=== PATIENT | male | born 1940 | race African-American/Black ===

== ENCOUNTER 2025-03-25 15:31 | Inpatient (IN) | payer BC, MEDICARE ==
[~2025-03-25] VITALS: Ht 180.3 cm; Wt 62.6 kg
[~2025-03-25 15:31] MED LIST: ASPI-1160 PO; CLOP-31 PO; FERR-63 PO; FURO40TA5 PO; LIP40 PO; MIDO5TAB4 PO; PANT40TA51 PO; QUET25TA PO; TAMS-54 PO
[2025-03-25 15:36] VITALS: O2SAT 99
[2025-03-25 16:58] LABS: BASOPHILS % 0.8 % (0.0-2.0); EOSINOPHILS % 1.3 % (0.0-5.0); HEMATOCRIT. 28.0 % (42.0-52.0); HEMOGLOBIN. 8.9 g/dL (14.0-18.0); LYMPHOCYTES % 14.8 % (20.0-50.0); MEAN PLATELET VOLUME 7.1 fl (7.4-10.4); MONOCYTES % 5.8 % (2.0-8.0); NEUTROPHILS % 77.3 % (40.0-76.0); PLATELET 528 x1000/uL (130-400); RED BLOOD CELL COUNT 3.29 mill/uL (4.7-6.1); RED CELL DISTRIBUTION WIDTH 18.8 % (11.6-14.6)
[2025-03-25 17:13] LABS: CREATININE 1.2 mg/dL (0.6-1.3)
[2025-03-25 17:14] LABS: PROTEIN TOTAL 6.4 g/dL (6.0-8.3); UREA NITROGEN BLOOD 20 mg/dL (9-23)
[2025-03-25 17:15] LABS: ASPARTATE AMINOTRANSFERASE 12 IU/L (<34)
[2025-03-25 17:16] LABS: BILIRUBIN DIRECT 0.2 mg/dL (<=3.0); BILIRUBIN TOTAL 0.4 mg/dL (0.1-1.0)
[2025-03-25] MEDS: MORPHINE SULFATE 4 MG/ML INJ (FOR IV/IM USE) IV ONE (17:20)
[2025-03-25] MEDS: ONDANSETRON HCL 4MG/2ML INJ IV ONE (17:20)
[2025-03-25 17:26] LABS: TROPONIN I HIGH SENSITIVITY 54 ng/L (3.0-53)
[2025-03-25 17:27] LABS: TROPONIN I HIGH SENSITIVITY 58 ng/L (3.0-53)
[2025-03-25] MEDS ORDERED: MORPHINE SULFATE 2 MG/ML INJ (NOT FOR IM USE) IV PRN (19:00)
[2025-03-25] MEDS ORDERED: ONDANSETRON HCL 4MG/2ML INJ IV PRN (19:00)
[2025-03-25] MEDS ORDERED: HYDROCODONE/ACETAMINOPHEN 5/325MG TABLET PO PRN (19:00)
[2025-03-25] MEDS ORDERED: ACETAMINOPHEN 325MG TABLET PO PRN (19:00)
[2025-03-25] MEDS ORDERED: MAGNESIUM/ALUMINUM HYDROXIDE/SIMETHICONE 30ML UDC PO PRN (19:00)
[2025-03-25] MEDS ORDERED: CLONIDINE 0.1MG TABLET PO PRN (19:00)
[2025-03-25 21:00] VITALS: BP 105/57; PULSE 114; RESP 18; TEMP 36.5848
[2025-03-25] MEDS: TAMSULOSIN HCL 0.4MG SR CAPSULE PO SCH (21:00)
[2025-03-25] MEDS: MIDODRINE HCL 5MG TABLET PO SCH (21:16)
[2025-03-25] MEDS: QUETIAPINE FUMARATE 25MG TABLET PO SCH (21:18)
[2025-03-25] MEDS: ATORVASTATIN CALCIUM 40MG TABLET PO SCH (21:18)
[2025-03-26 08:00] VITALS: BP 111/63; PULSE 98; RESP 16; TEMP 35.7; O2SAT 93
[2025-03-26] MEDS ORDERED: BISACODYL 5MG TABLET PO PRN (08:30)
[2025-03-26] MEDS: POLYETHYLENE GLYCOL 3350 (17GM) 1 DOSE PACK PO SCH (09:03)
[2025-03-26] MEDS: BISACODYL 10MG SUPP PR SCH (09:03)
[2025-03-26] MEDS: ASPIRIN 81MG TABLET PO SCH (09:03)
[2025-03-26] MEDS: PANTOPRAZOLE SODIUM 40 MG/VIAL IV SCH (09:03)
[2025-03-26] MEDS: CLOPIDOGREL 75MG TABLET PO SCH (09:04)
[2025-03-26] MEDS: FUROSEMIDE 40MG TABLET PO SCH (09:04)
[2025-03-26] MEDS: FERROUS SULFATE 325MG TABLET PO SCH (09:04)
[2025-03-26] MEDS: ENOXAPARIN 40MG/0.4ML SYR SUBCUT SCH (09:05)
[2025-03-26] MEDS: PIPERACILLIN/TAZO 3.375G/50ML 50 ML IV SCH (09:10)
[2025-03-26 11:36] LABS: CREATININE 1.2 mg/dL (0.6-1.3)
[2025-03-26 11:37] LABS: UREA NITROGEN BLOOD 14 mg/dL (9-23)
[2025-03-26 11:40] LABS: TROPONIN I HIGH SENSITIVITY 64 ng/L (3.0-53)
[2025-03-26 12:00] VITALS: BP 106/62; PULSE 100; RESP 16; TEMP 35.8; O2SAT 96
[2025-03-26 13:17] LABS: CLARITY URINE TURBID (CLEAR); COLOR URINE DARK YELLOW (YELLOW); GLUCOSE URINE NEGATIVE (NEGATIVE); KETONES URINE TRACE (NEGATIVE); LEUKOCYTE ESTERASE URINE 3+ (NEGATIVE); NITRITE URINE POSITIVE (NEGATIVE); OCCULT BLOOD URINE TRACE (NEGATIVE); PH URINE >=9.0 (4.5-8.0); PROTEIN URINE 3+ (NEGATIVE); SPECIFIC GRAVITY URINE 1.019 (1.005-1.030); UROBILINOGEN URINE 1.0 E.U./dL (0.2-1.0)
[2025-03-26] MEDS: LACTULOSE 20G/30ML UDC PO SCH (13:20)
[2025-03-26 13:44] LABS: BACTERIA URINE 4+; RBC URINE NONE SEEN /hpf (0-2); SQUAMOUS EPITHELIAL CELL URINE NONE SEEN /lpf (RARE/1+); YEAST URINE NONE SEEN
[2025-03-26 13:49] LABS: *AMPHETAMINES SCREEN URINE NEGATIVE (NEGATIVE); *BENZODIAZEPINES SCREEN URINE NEGATIVE (NEGATIVE)
[2025-03-26 13:50] LABS: *BARBITURATES SCREEN URINE NEGATIVE (NEGATIVE); *COCAINE SCREEN URINE NEGATIVE (NEGATIVE); CANNABINOID URINE SCREEN NEGATIVE (NEGATIVE); ECSTASY MDMA SCREEN URINE NEGATIVE (NEGATIVE); METHADONE URINE SCREEN NEGATIVE (NEGATIVE); OPIATES URINE SCREEN NEGATIVE (NEGATIVE); PHENCYCLIDINE URINE SCREEN NEGATIVE (NEGATIVE)
[2025-03-26] MEDS ORDERED: ENOXAPARIN 30MG/0.3ML SYR SUBCUT SCH (14:30)
[2025-03-26] MEDS: AMIODARONE 200MG TABLET PO SCH (14:41)
[2025-03-26 16:00] VITALS: BP 107/72; PULSE 106; RESP 16; TEMP 35.6; O2SAT 96
[2025-03-26 20:00] VITALS: BP 98/61; PULSE 100; RESP 18; TEMP 36.3; O2SAT 100
[2025-03-26] MEDS: ZOLPIDEM TARTRATE 5MG TABLET PO PRN (21:35)
[2025-03-26] MEDS: ENOXAPARIN 60MG/0.6ML SYR SUBCUT SCH (23:21)
[2025-03-27] VITALS: BP 114/73; PULSE 109; RESP 18; TEMP 36.2; O2SAT 100
[2025-03-27 04:00] VITALS: BP 123/57; PULSE 102; RESP 19; TEMP 36; O2SAT 97
[2025-03-27 08:00] VITALS: BP 113/60; PULSE 104; RESP 17; TEMP 35.6; O2SAT 97
[2025-03-27 11:05] LABS: BASOPHILS % 0.8 % (0.0-2.0); EOSINOPHILS % 1.5 % (0.0-5.0); HEMATOCRIT. 29.2 % (42.0-52.0); HEMOGLOBIN. 9.4 g/dL (14.0-18.0); LYMPHOCYTES % 15.2 % (20.0-50.0); MEAN PLATELET VOLUME 7.1 fl (7.4-10.4); MONOCYTES % 3.4 % (2.0-8.0); NEUTROPHILS % 79.1 % (40.0-76.0); PLATELET 530 x1000/uL (130-400); RED BLOOD CELL COUNT 3.41 mill/uL (4.7-6.1); RED CELL DISTRIBUTION WIDTH 19.3 % (11.6-14.6)
[2025-03-27 11:14] LABS: CREATININE 1.3 mg/dL (0.6-1.3); UREA NITROGEN BLOOD 18 mg/dL (9-23)
[2025-03-27 12:00] VITALS: BP 111/72; PULSE 98; RESP 18; TEMP 36.2; O2SAT 98
[2025-03-27 16:00] VITALS: BP 120/71; PULSE 104; RESP 19; TEMP 36.4; O2SAT 98
[2025-03-27 20:00] VITALS: BP 115/61; PULSE 111; RESP 18; TEMP 36.2; O2SAT 97
[2025-03-28] VITALS: BP 112/77; PULSE 105; RESP 18; TEMP 36.8; O2SAT 98
[2025-03-28 04:00] VITALS: BP 120/76; PULSE 133; RESP 18; TEMP 36.4; O2SAT 98
[2025-03-28 08:00] VITALS: BP 118/72; PULSE 102; RESP 14; TEMP 36.2; O2SAT 96
[2025-03-28 08:15] LABS: BASOPHILS % 0.5 % (0.0-2.0); CREATININE 1.2 mg/dL (0.6-1.3); EOSINOPHILS % 1.3 % (0.0-5.0); HEMATOCRIT. 27.6 % (42.0-52.0); HEMOGLOBIN. 8.9 g/dL (14.0-18.0); LYMPHOCYTES % 13.1 % (20.0-50.0); MEAN PLATELET VOLUME 7.2 fl (7.4-10.4); MONOCYTES % 3.9 % (2.0-8.0); NEUTROPHILS % 81.2 % (40.0-76.0); PLATELET 516 x1000/uL (130-400); RED BLOOD CELL COUNT 3.23 mill/uL (4.7-6.1); RED CELL DISTRIBUTION WIDTH 18.7 % (11.6-14.6)
[2025-03-28 08:16] LABS: UREA NITROGEN BLOOD 27 mg/dL (9-23)
[2025-03-28 12:00] VITALS: BP 110/93; PULSE 94; RESP 15; TEMP 36.2; O2SAT 95
[2025-03-28 16:00] VITALS: BP_SYST 113; PULSE 91; RESP 13; TEMP 36.3; O2SAT 94
[2025-03-28 20:00] VITALS: BP 110/75; PULSE 98; RESP 19; TEMP 36.7; O2SAT 97
[2025-03-29] VITALS (7 sets, daily range): BP systolic 108–139; BP diastolic 61–96; PULSE 63–124; RESP 14–19; TEMP 36.3–36.8; O2SAT 95–99
[2025-03-29] MEDS ORDERED: EPINEPHRINE 0.1MG/ML (1:10,000) 10ML SYR ONE (09:50)
[2025-03-29] MEDS ORDERED: VERAPAMIL HCL 2.5 MG/1 ML 2ML VIAL IV ONE (09:50)
[2025-03-29] MEDS ORDERED: HEPARIN 1000 UNITS/ML 10ML ONE (09:51)
[2025-03-29] MEDS ORDERED: DIPHENHYDRAMINE 50MG/ML VIAL ONE (09:51)
[2025-03-29] MEDS ORDERED: FENTANYL CITRATE/PF 50MCG/ML 2ML VIAL ONE (09:51)
[2025-03-29] MEDS ORDERED: MIDAZOLAM HCL 2 MG/2 ML VIAL ONE (09:51)
[2025-03-29] MEDS ORDERED: LIDOCAINE HCL 1% 20ML VIAL ONE (09:51)
[2025-03-29] MEDS ORDERED: ATROPINE SULFATE 1MG/10ML SYR ONE (09:52)
[2025-03-29] MEDS ORDERED: IODIXANOL 320MG/ML 100 ML BOTTLE IV ONE (09:52)
[2025-03-29] MEDS ORDERED: ACETAMINOPHEN 325MG TABLET PO PRN (12:15)
[2025-03-29] MEDS ORDERED: ATROPINE SULFATE 1MG/10ML SYR IV PRN (12:15)
[2025-03-30] VITALS: BP 98/53; PULSE 93; RESP 18; TEMP 36.2; O2SAT 99
[2025-03-30 04:00] VITALS: BP 104/56; PULSE 89; RESP 18; TEMP 35.9; O2SAT 100
[2025-03-30 06:22] LABS: BASOPHILS % 0.8 % (0.0-2.0); EOSINOPHILS % 2.7 % (0.0-5.0); HEMATOCRIT. 28.6 % (42.0-52.0); HEMOGLOBIN. 8.8 g/dL (14.0-18.0); LYMPHOCYTES % 11.1 % (20.0-50.0); MEAN PLATELET VOLUME 7.4 fl (7.4-10.4); MONOCYTES % 2.9 % (2.0-8.0); NEUTROPHILS % 82.5 % (40.0-76.0); PLATELET 427 x1000/uL (130-400); RED BLOOD CELL COUNT 3.26 mill/uL (4.7-6.1); RED CELL DISTRIBUTION WIDTH 19.4 % (11.6-14.6)
[2025-03-30 06:59] LABS: CREATININE 1.2 mg/dL (0.6-1.3)
[2025-03-30 07:00] LABS: UREA NITROGEN BLOOD 15 mg/dL (9-23)
[2025-03-30 08:00] VITALS: BP 100/66; PULSE 87; RESP 17; TEMP 36; O2SAT 100
[2025-03-30 12:00] VITALS: BP 111/71; PULSE 99; RESP 17; TEMP 36; O2SAT 100
[2025-03-30 16:00] VITALS: BP 110/73; PULSE 99; RESP 17; TEMP 35.9; O2SAT 100
[2025-03-30 20:00] VITALS: BP 114/63; PULSE 91; RESP 18; TEMP 36.9; O2SAT 99
[2025-03-31] VITALS: BP 131/62; PULSE 94; RESP 19; TEMP 36.6; O2SAT 96
[2025-03-31 04:00] VITALS: BP 111/59; PULSE 83; RESP 19; TEMP 36.6; O2SAT 97
[2025-03-31 08:00] VITALS: BP_SYST 108; BP_SYST 109; BP_DIAS 57; BP_DIAS 85; PULSE 81; RESP 17; TEMP 36.2; O2SAT 96
[2025-03-31 12:00] VITALS: BP 105/58; PULSE 83; RESP 17; TEMP 36.2; O2SAT 99
[2025-03-31 16:00] VITALS: BP 91/54; PULSE 86; RESP 17; TEMP 36.4; O2SAT 100
[2025-03-31 20:00] VITALS: BP 108/54; PULSE 86; RESP 18; TEMP 35.5; O2SAT 97
[2025-04-01] VITALS: BP 103/50; PULSE 90; RESP 19; TEMP 36.3; O2SAT 98
[2025-04-01 04:00] VITALS: BP 102/54; PULSE 87; RESP 18; TEMP 36.3; O2SAT 99
[2025-04-01 08:00] VITALS: BP 109/63; PULSE 86; RESP 20; TEMP 36.4; O2SAT 97
[2025-04-01] MEDS ORDERED: ATOR40TA70 MT (11:48)
[2025-04-01] MEDS ORDERED: CLOP-31 MT (11:48)
[2025-04-01] MEDS ORDERED: APIX5TAB MT (11:48)
[2025-04-01] MEDS ORDERED: AMI2 MT (11:48)
[2025-04-01 12:00] VITALS: BP 112/67; PULSE 84; RESP 18; TEMP 36.4; O2SAT 98
[2025-04-01] MEDS: APIXABAN 5 MG TABLET PO SCH (13:05)
[2025-04-01 14:55] LABS: BG BASE EXCESS 3.8 mmol/L (-2.0-3.0); BG CARBOXYHEMOGLOBIN 0.8 % (0.5-1.5); BG DEOXYHEMOGLOBIN 5.6 % (0.0-5.0); BG FRACTION INSPIRED OXYGEN 21; BG HCO3 ACT 27.9 mmol/L (21.0-28.0); BG METHEMOGLOBIN 0.3 % (0.5-1.5); BG OXYGEN SATURATION 94.3 % (94.0-98.0); BG OXYHEMOGLOBIN 93.3 % (94.0-98.0); BG PCO2 40.0 mmHg (35.0-48.0); BG PH 7.461 (7.350-7.450); BG PO2 75.4 mmHg (83.0-108.0); BG SAMPLE SITE RIGHT RADIAL; BG TOTAL HEMOGLOBIN 11.2 g/dL (13.5-17.5); BG VENT MODE ROOM AIR
[2025-04-01 16:00] VITALS: BP 101/55; PULSE 90; RESP 17; TEMP 36.7; O2SAT 98
[2025-04-01 20:00] VITALS: BP 110/62; PULSE 91; RESP 18; TEMP 36.3; O2SAT 97
[2025-04-02] VITALS: BP 86/50; PULSE 89; RESP 19; TEMP 36.1; O2SAT 97
[2025-04-02 04:00] VITALS: BP 103/60; PULSE 83; RESP 18; TEMP 35.6; O2SAT 97
[2025-04-02 08:00] VITALS: BP 120/67; PULSE 91; RESP 17; TEMP 36.3; O2SAT 97
[2025-04-02] MEDS: AMIODARONE 200MG TABLET PO SCH (09:44)
[2025-04-02 12:00] VITALS: BP 99/66; PULSE 99; RESP 16; TEMP 35.6; O2SAT 96
[2025-04-02 16:00] VITALS: BP 104/54; PULSE 88; RESP 16; TEMP 35.7; O2SAT 96
[2025-04-02 20:00] VITALS: BP 113/74; PULSE 105; RESP 18; TEMP 36.5; O2SAT 97
[2025-04-03] VITALS: BP 135/69; PULSE 104; RESP 20; TEMP 36.3; O2SAT 97
[2025-04-03 04:00] VITALS: BP 118/64; PULSE 109; RESP 19; TEMP 36.4; O2SAT 96
[2025-04-03 08:00] VITALS: BP 121/79; PULSE 96; RESP 17; TEMP 36; O2SAT 97
[2025-04-03 12:00] VITALS: BP 126/66; PULSE 71; RESP 16; TEMP 35.9; O2SAT 96
[2025-04-03 13:08] VITALS: BP 126/66; PULSE 71; RESP 16; TEMP 96.6
== END 2025-04-03 16:00 | disposition home health service (06) | DRG 280 ==
LOC: ER 15:31 → EDBEDREQ 18:01 → EDBEDREQTM 18:01 → 6WST 19:55
PROVIDERS: ADMIT Internal Medicine; ATTEND Internal Medicine
PROC: 4A023N7 Measurement of Cardiac Sampling and Pressure, Left Heart, Percutaneous Approach (ICD-10-PCS; principal; 2025-03-25)
PROC: B211YZZ Fluoroscopy of Multiple Coronary Arteries using Other Contrast (ICD-10-PCS; 2025-03-25)
DX: I21.4 Non-ST elevation (NSTEMI) myocardial infarction (principal); I50.23 Acute on chronic systolic (congestive) heart failure; J18.9 Pneumonia, unspecified organism; L89.153 Pressure ulcer of sacral region, stage 3; N18.6 End stage renal disease; I13.2 Hypertensive heart and chronic kidney disease with heart failure and with stage 5 chronic kidney disease, or end stage renal disease; I47.20 Ventricular tachycardia, unspecified; J44.0 Chronic obstructive pulmonary disease with (acute) lower respiratory infection; I47.10 Supraventricular tachycardia, unspecified; Z99.2 Dependence on renal dialysis; Z79.01 Long term (current) use of anticoagulants; Z79.02 Long term (current) use of antithrombotics/antiplatelets; F03.90 Unspecified dementia, unspecified severity, without behavioral disturbance, psychotic disturbance, mood disturbance, and anxiety; E11.22 Type 2 diabetes mellitus with diabetic chronic kidney disease; D64.9 Anemia, unspecified; I25.10 Atherosclerotic heart disease of native coronary artery without angina pectoris; R62.7 Adult failure to thrive; I48.0 Paroxysmal atrial fibrillation; D21.9 Benign neoplasm of connective and other soft tissue, unspecified; I44.7 Left bundle-branch block, unspecified; Z79.899 Other long term (current) drug therapy; Z86.73 Personal history of transient ischemic attack (TIA), and cerebral infarction without residual deficits; Z95.5 Presence of coronary angioplasty implant and graft
CPT/HCPCS: 36415; 36600; 71045; 73521; 74176; 76604; 80048; 80076; 80305; 81003; 82375; 82805; 82962; 83880; 84145; 84443; 84484; 85025; 93005; 93458; 93970; 97162; 99285; A4606; A4615; C1769; C1887; C1893; J0461; J1200; J1644; J1650; J2003; J2250; J2470; J2543; J3010; J3490; Q9967